=== PATIENT | male | born 1935 | race Caucasian/White ===

== ENCOUNTER → 2016-09-24 | Outpatient (CLI) | payer OTHER ==
[~2016-09-24] MED LIST: ACCUPRIL PO; ACTOS PO; ADVAIR 2501 DISK W/D PO; AGGRENOX; AGGRENOX1 CAP PO; ALBUTEROL 90 MCG; ALBUTEROL MININEB NEB; ALBUTEROL17 GM INH; ALLERGY10 M1 PO; APIDRA100 U/ML; APIDRA100 U/ML SUBQ; ASPIRIN EC81 M1 PO; ASPIRIN PO; ASPIRIN81 M2 PO; ATROVENT 0.03%30 ML; BIMATOPROST 0.03% OU; BREO ELLIPTA 11 EACH INH; CLARITIN10 M2 PO; CLOPIDOGREL BIS75 MG PO; COSOPT EYE DROPS5 ML OP; COSOPT EYE DROPS5 ML OU; COSOPT1 UNI1 OU; DONEPEZIL HCL10 MG PO; FEOSOL PO; FUROSEMIDE40 MG PO; GLUCOVANCE 5/501 TA1 PO; ILEVRO1.7 ML OD; LANTUS100 U/ML SUBQ; LASIX PO; LEVEMIR; LEVEMIR SUBQ; LEVEMIR100 UNITS/ SUBQ; LIPITOR PO; LIPITOR40 MG PO; LISINOPRIL2.5 MG PO; LOPRESSOR PO; LORTAB 7.5-5001 TAB PO; LOSARTAN POTASS50 MG PO; LUMIGAN2.5 ML OU; MELOXICAM7.5 MG PO; METAMUCIL0.52 G PO; METOPROLOL TAR25 MG PO; MILK OF MAGNESIA PO; MONTELUKAST SOD10 MG PO; NAMENDA XR28 MG PO; NASONEX17 GM; NORVASC PO; NOVOLOG100 UNITS/; PLAVIX PO; PREDNISONE10 M1 PO; PSYLLIUM PO; SENNA PO; SINGULAIR PO; SPIRIVA18 MCG INH; SYNTHROID PO; SYNTHROID88 MCG PO; SYSTANE GEL EYE10 ML OU; ULORIC40 MG PO; ZETIA PO; ZITHROMAX PO; ZITHROMAX500 MG PO; [UNRECOGNIZED DRUG - OTHER]
--- NOTE | ~2016-09-24 | US77 ---
[facility] A Service of [facility] & [facility] RADIOLOGY TEXT RESULTS PATIENT: FRAN MÉNDEZ LOCATION: US : 37 UNIT #: [id number] AGE: [address]: Juan J Murphy MD SEX: M ORDER DR: [id number] [facility] [address] [place], [place] [address] [id number] O MR#: [id number] Acc #: [id number] NAME: FRAN MÉNDEZ : 1935 SEX: M STUDY DATE/TIME: 09/24/2016 12:54 UNIT: US ROOM: STUDY DESCRIPTION: US Kidney Bilateral Complete Attending Physician: Asim Murphy M.D. Referring Physician: Asim Murphy M.D. Ordering Physician: Asim Murphy M.D. Primary Care Physician: Wood Alfonso M.D. MEDICAL IMAGING REPORT This report is preliminary unless electronic signature is present EXAM Renal ultrasound INDICATIONS Stage III chronic kidney disease PROCEDURE Almaraz-scale and Doppler imaging of the kidneys and bladder COMPARISON None FINDINGS The right kidney measures 11.6 cm. Left kidney measures 10.5 cm. 2.2 cm cyst upper pole left kidney. No hydronephrosis. Unremarkable bladder. IMPRESSION Cyst in the upper pole left kidney; otherwise negative renal ultrasound. Dictated by... Felice Don M.D. THIS IS AN ELECTRONICALLY VERIFIED REPORT Felice Don M.D. at 09/24/2016 4:52 PM EED/to TD: 09/24/2016 15:11 JOB #: [id number] MEDICAL IMAGING REPORT COPY
[2016-09-24 13:41] LABS: URINE APPEARANCE CLEAR; URINE BILIRUBIN NEG (NEG); URINE BLOOD NEG (NEG); URINE COLOR YELLOW; URINE GLUCOSE 100 MG/DL (NEG); URINE KETONE NEG (NEG); URINE LEUKOCYTE ESTERASE 3+ (NEG); URINE NITRATE NEG (NEG); URINE PH 5.5 (5-8); URINE PROTEIN NEG (NEG); URINE SPECIFIC GRAVITY 1.012 (1.003-1.035); URINE UROBILINOGEN 0.2 MG/DL (NEG)
[2016-09-24 13:45] LABS: URBCS1 AUWI 0-2 /[HPF] (0-2); URINE BACTERIA AUWI NEG (NEGATIVE); URINE SQUAMOUS EPITHELIAL CELL OCC /[HPF]
[2016-09-24 14:03] LABS: ALBUMIN SERUM 3.4 g/dL (3.5-5.0); BILIRUBIN,TOTAL 0.7 mg/dL (0.2-2.0); BUN/CREATININE RATIO 31.66; CALCIUM SERUM 8.2 mg/dL (8.4-10.2); CREATININE SERUM 1.8 mg/dL (0.6-1.4); GLOM FILT RATE Estimated 38.9 mL/min (>60); PHOSPHOROUS 3.4 mg/dL (2.5-4.6); POTASSIUM 4.7 mmol/L (3.5-5.1); PROTEIN TOTAL SERUM 6.5 g/dL (6.0-8.3); URIC ACID 5.8 mg/dL (2.6-7.2)
[2016-09-26 07:36] LABS: COMPLEMENT C3 180 mg/dL (90-180); COMPLEMENT C4 40 mg/dL (16-47)
[2016-09-26 21:07] LABS: ANA SCREEN Negative (Negative); CALCIUM (PTHINTACT) 8.4 mg/dL (8.6-10.3); MYELOPEROXIDASE AB (PNL) <1.0 AI (<1.0); PROTEINASE-3 AB (PNL) <1.0 AI (<1.0)
== END | disposition home or self-care (01) ==
LOC: CGUS 12:24
PROVIDERS: Internal Medicine Nephrology
DX: N17.9 Acute kidney failure, unspecified (principal); N18.3 Chronic kidney disease, stage 3 (moderate); N25.81 Secondary hyperparathyroidism of renal origin; N28.1 Cyst of kidney, acquired
CPT/HCPCS: 36415; 76770; 80053; 81003; 82310; 82550; 83970; 84100; 84550; 86021; 86038; 86039; 86160; 86334

== ENCOUNTER 2016-12-30 18:23 | Observation (INO) | payer OTHER ==
--- NOTE | ~2016-12-30 | CR63 ---
[facility] A Service of [facility] & [facility] RADIOLOGY TEXT RESULTS PATIENT: FRAN MÉNDEZ LOCATION: B 550-01 : 37 UNIT #: [id number] AGE: [address]: Kiki Cooney MD SEX: M ORDER DR: [id number] [facility] [address] [facility]. [place], [place] [address] [id number] I MR#: [id number] Acc #: [id number] NAME: FRAN MÉNDEZ : 1935 SEX: M STUDY DATE/TIME: 01/01/2017 7:34 UNIT: [facility] ROOM: [facility] STUDY DESCRIPTION: CR Chest 2 View Attending Physician: Kiki Cooney M.D. Ordering Physician: Heath Patel M.D. Primary Care Physician: Wood Alfonso M.D. MEDICAL IMAGING REPORT This report is preliminary unless electronic signature is present EXAM PA and lateral chest 2 views 01/01/2017 COMPARISON 12/30/2016. CLINICAL HISTORY Short of air, cough and congestion for 6 days. History of COPD. FINDINGS There has been prior sternotomy and bypass. Chronic elevation of the left hemidiaphragm is redemonstrated along with mildly prominent interstitium. However, there is no consolidation, effusion, pneumothorax or convincing acute interval change since 12/30/2016. Dictated by... Dk Yeh M.D. THIS IS AN ELECTRONICALLY VERIFIED REPORT Dk Yeh M.D. at 01/04/2017 2:20 PM MARCELLE/mary ellen TD: 01/01/2017 11:23 JOB #: [id number] MEDICAL IMAGING REPORT Page 1 of 1 COPY
--- NOTE | ~2016-12-30 | NM69 ---
[facility] A Service of [facility] & [facility] RADIOLOGY TEXT RESULTS PATIENT: FRAN MÉNDEZ LOCATION: [facility] 550-01 : 37 UNIT #: [id number] AGE: [address]: Kiki Cooney MD SEX: M ORDER DR: [id number] [facility] [address] [facility]. [place], [place] [address] [id number] I MR#: [id number] Acc #: [id number] NAME: FRAN MÉNDEZ : 1935 SEX: M STUDY DATE/TIME: 12/31/2016 11:09 UNIT: [facility] ROOM: [facility] STUDY DESCRIPTION: NM Pulm Vent and Perf Attending Physician: Kiki Cooney M.D. Ordering Physician: Maycol Smith M.D. Primary Care Physician: Wood Alfonso M.D. MEDICAL IMAGING REPORT This report is preliminary unless electronic signature is present EXAM Ventilation/perfusion of the lungs. HISTORY Elevated D-dimer. Shortness of air and cough for 3 days. FINDINGS The ventilation study was done with 33.7 mCi technetium 99m DTPA in aerosol and perfusion study was 6 mCi technetium 99m MAA. There is a chest x-ray from yesterday for comparison. A pacemaker is present. There are no mismatched perfusion ventilation defects. No significant perfusion defects are identified. IMPRESSION Study indicates low probability for pulmonary embolus. Dictated by... Travis Snyder M.D. THIS IS AN ELECTRONICALLY VERIFIED REPORT Travis Snyder M.D. at 01/01/2017 3:55 PM Barbara TD: 12/31/2016 12:45 JOB #: [id number] MEDICAL IMAGING REPORT Page 1 of 1 COPY
--- NOTE | ~2016-12-30 | CO ---
Unit #: [id number] #: [id number] Patient: FRAN LOMELI [id number] [address] [address] [id number] I MR#: [id number] NAME: FRAN LOMELI ROOM: 550 Age: 81 Sex: M Admission Date: 12/31/2016 : 1935 Attending Physician: Kiki Cooney M.D. Primary Care Physician: Wood Alfonso M.D. CONSULTATION REPORT HISTORY OF PRESENT ILLNESS Mr. Lomeli is a 80-year-old white male with a history of coronary artery disease, status post CABG; left ventricular dysfunction; COPD; diabetes; hypertension; and chronic kidney disease, who presents with about a 4- to 5-day history of increasing shortness of breath. 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 Saturday, he was more short of breath and was seen in after-hours clinic and apparently wheezing and given a Depo-Medrol shot. He did not improve over the next 3 to 4 days. He has had a cough, productive of greenish sputum. He has had no definite fevers. No chest pain, but increasing shortness of breath. His daughter noted that he was more restless and was eating and drinking, and was brought to the emergency room, where he has been admitted. His chest x-ray showed no acute infiltrates. His creatinine was 1.9 from 1.8 in August. Cardiac enzymes were negative. Troponin 0.06. BNP is 256. Lactic acid was 0.9. Coags are normal. White count was 8500, hematocrit was 32.1, and platelet count was 187. He has been admitted and we were asked to see. PAST MEDICAL HISTORY Significant for; 1. Coronary artery disease, status post CABG. 2. COPD. 3. Insulin-dependent diabetes mellitus. 4. Hypertension. 5. Hyperlipidemia. 6. History of left pleural effusion, which was exudative, statu post VAT. . PAST SURGICAL HISTORY 1. VAT for left pleural effusion. 2. Coronary artery bypass grafting x2. 3. Cataract extraction. 4. Retina surgery. 5. Pacemaker placement. ALLERGIES Shellfish. HOME MEDICATIONS Please see medication reconciliation. SOCIAL HISTORY Reformed smoker. No alcohol. No illicit drugs. . Does not use Unit #: [id number] #: [id number] Patient: FRAN LOMELI home oxygen. FAMILY HISTORY Negative for lung disease. REVIEW OF SYSTEMS CONSTITUTIONAL: No documented fever. HEENT: No rhinorrhea or nasal congestion. PULMONARY: As noted. CARDIAC: No chest pain or palpitations. GI: No nausea or vomiting. Did have some diarrhea. : No hematuria or dysuria. ENDOCRINE: No polyuria or polydipsia. Does have diabetes and has had decreased p.o. intake. NEUROLOGIC: No unilateral weakness or numbness. PHYSICAL EXAMINATION GENERAL: White male, in no distress, lying in bed. VITAL SIGNS: Blood pressure is 148/64, pulse 88, afebrile, respiratory rate 20. HEENT: Normocephalic and atraumatic. Pupils are equal, round, and reactive. Sclerae nonicteric. Nasal passages patent. Posterior pharynx clear. Mucous membranes are somewhat dry. NECK: Supple. Trachea midline. No cervical or supraclavicular lymphadenopathy. LUNGS: Reveal crackles in the bases bilaterally. CARDIAC: Regular rate and rhythm. Could not appreciate murmur, rub, or gallop. ABDOMEN: Nontender. Bowel sounds are present. No hepatosplenomegaly. EXTREMITIES: Without clubbing, cyanosis, or edema. Diminished pulses. SKIN: Warm and dry. Affect calm. NEUROLOGIC: Awake and oriented x3. Cranial nerves grossly intact. Muscle strength symmetric. LABORATORY STUDIES Reviewed as noted. IMPRESSION 1. Chronic obstructive pulmonary disease exacerbation. 2. Acute bronchitis. 3. Coronary artery disease. 4. History of congestive heart failure. 5. Hypertension. 6. Diabetes. 7. Chronic kidney disease. Elevated creatinine in part may be due to some volume depletion. PLAN We will treat with inhaled bronchodilators with cover with antibiotics. We will recheck chest x-ray in the a.m. He does have rales on exam. This could be development of CHF. We will review his x-ray and monitor. Further recommendations pending. Dictated by... Heath Patel M.D. ALISHA/rosette Unit #: [id number] #: [id number] Patient: FRAN LOMELI TD: 01/01/2017 13:38 JOB #: [id number] CC: Dr. Rustam Kulkarni CONSULTATION REPORT Page 1 of 1 X Heath Patel MD CONSULTATION REPORT
--- NOTE | ~2016-12-30 | CR72 ---
[facility] A Service of [facility] & [facility] RADIOLOGY TEXT RESULTS PATIENT: FRAN MÉNDEZ LOCATION: [facility] 550-01 : 37 UNIT #: [id number] AGE: [address]: Kiki Cooney MD SEX: M ORDER DR: [id number] [facility] [address] [facility]. [place], [place] [address] [id number] I MR#: [id number] Acc #: [id number] NAME: FRAN MÉNDEZ : 1935 SEX: M STUDY DATE/TIME: 12/30/2016 20:47 UNIT: [facility] ROOM: [facility] STUDY DESCRIPTION: CR Chest Single View Portable Attending Physician: Maycol Smith M.D. Ordering Physician: Luz Casarez M.D. Primary Care Physician: Wood Alfonso M.D. MEDICAL IMAGING REPORT This report is preliminary unless electronic signature is present EXAM Portable chest HISTORY Shortness of air and cough and congestion for 3 days. FINDINGS The cardiac size and pulmonary vascularity are normal. No infiltrates or effusions. Sternotomy with CABG markers. Mild linear atelectasis or scarring in both lung bases. Left subclavian pacer leads extend into the right atrium and right ventricle. IMPRESSION 1. No acute findings and no evidence of active disease. 2. Mild linear atelectasis or scarring in the left base. 3. Prior CABG. Dictated by... Mukesh Mckinley M.D. THIS IS AN ELECTRONICALLY VERIFIED REPORT Mukesh Mckinley M.D. at 12/31/2016 3:06 PM ORD/nelda TD: 12/31/2016 08:02 JOB #: [id number] MEDICAL IMAGING REPORT Page 1 of 1 COPY
--- NOTE | ~2016-12-30 | HP ---
Unit #: [id number] #: [id number] Patient: FRAN MÉNDEZ [id number] [address] [address] [id number] I MR#: [id number] NAME: FRAN MÉNDEZ ROOM: 550 Age: 81 Sex: M Admission Date: 12/31/2016 : 1935 Attending Physician: Kiki Cooney M.D. Primary Care Physician: Wood Alfonso M.D. HISTORY AND PHYSICAL CHIEF COMPLAINT Shortness of breath. HISTORY OF PRESENT ILLNESS 81-year-old with a history of COPD, admitted because of shortness of breath. According to him and his family, started four days prior to the admission. The patient was seen by a physician. They gave him some Duo-Nebs. No antibiotic prescription given but his breathing got worse to the point where he was short of breath at rest. Also, according to the , he noticed he is more confused than usual. He does have Alzheimer dementia. He did also complain of cough with yellow to green phlegm in the beginning, currently white phlegm. No chest pain, no fever, no chills, no syncope, no passing out, no dizziness. PAST MEDICAL HISTORY 1. History of coronary artery disease, status post CABG. 2. COPD. 3. Diabetes mellitus type 2. 4. Hypertension. 5. Sick sinus syndrome with pacemaker. 6. Chronic kidney disease stage 2. 7. Chronic diastolic heart failure. 8. Hyperlipidemia. 9. History of left pleural effusion, exudative. SOCIAL HISTORY Ex-smoker, quit in . Occasional alcohol, no drugs. FAMILY HISTORY Positive for hypertension. MEDICATIONS 1. Aspirin 81 p.o. daily. 2. Lipitor 40 daily. 3. Lumigan one drop daily. 4. Breo, one inhalation daily. 5. Plavix 75 daily. 6. Donepezil 10 daily. 7. Cosopt, one drop b.i.d. 8. Lasix 40 daily. 9. Nepafenac, one drop b.i.d. 10. Synthroid 88 mcg daily except Saturday take 1.5 tablet. 11. Fabiola 10 mg p.o. daily. 12. Atorvastatin, two sprays b.i.d. Unit #: [id number] #: [id number] Patient: FRAN MÉNDEZ 13. Losartan 50 mg daily. 14. Meloxicam 7.5 b.i.d. 15. Lopressor 25 b.i.d. 16. Nasonex, two sprays daily. 17. Montelukast 10 mg at bedtime. 18. Namenda 28 mg daily. 19. Systane eyedrops daily. 20. Spiriva one inhalation daily. 21. Uloric 40 mg p.o. daily. 22. NovoLog sliding scale. 23. Levemir 62 units subcu b.i.d. 24. Ventolin one puff inhalation daily. 25. Ventolin one puff inhalation four times daily. REVIEW OF SYSTEMS No headache, no visual changes. Has diarrhea since four days. No constipation, no leg swelling, no skin rash. Reviewed twelve point system with him and his family which was negative except as in HPI. PHYSICAL EXAMINATION VITAL SIGNS: Temperature 98.5, pulse 44, respirations 18, blood pressure 114/78. GENERAL: 81-year-old lying on bed, alert, mildly confused. NECK: Supple. HEENT: Pupils equal, react to light and accommodation. Oriented x3, alert. LUNGS: Bilateral wheezing present. Decreased breath sounds. HEART: S1, S2 heard, irregular. Pacemaker present. ABDOMEN: Soft, nontender. Bowel sounds are present. EXTREMITIES: No pedal edema. SKIN: No rash. NEUROLOGICAL: The patient is alert and oriented x3, mildly confused. No focal neurological deficits. DIAGNOSTIC STUDIES LABORATORY DATA: WBC 8.5, hemoglobin 10.4, platelets 187. INR 1.0, BNP 256, creatinine 1.9. Lactic acid 0.9, glucose 180. IMAGING: Chest x-ray shows no acute findings. ASSESSMENT AND PLAN 81-year-old admitted because of shortness of breath and cough. 1. Acute hypoxic respiratory failure: Patient is currently on 3 L. 2. Chronic obstructive pulmonary disease with exacerbation: Patient will be started on Duo-Nebs and possible IV Solu-Medrol after seen by pulmonary. Rule out PE. V/Q scan has been ordered. Results are pending at the time of dictation. 3. Toxic metabolic encephalopathy, likely from hypoxia. Patient does have Alzheimer dementia and confusion in the past also. 4. Acute kidney injury with chronic kidney disease stage 2, likely from poor p.o. intake: Hold Lasix and monitor. 5. Chronic diastolic heart failure, stable. 6. Diabetes mellitus type 2: Continue sliding scale and Levemir. Dictated by Unit #: [id number] #: [id number] Patient: FRAN MÉNDEZ M.D. KJ/df TD: 12/31/2016 12:51 JOB #: [id number] HISTORY AND PHYSICAL Page 1 of 1 X Kiki Cooney MD X HISTORY AND PHYSICAL
--- NOTE | ~2016-12-30 | DS ---
Unit #: [id number] #: [id number] Patient: FRAN MÉNDEZ [id number] [address] [address] [id number] I MR#: [id number] NAME: FRAN MÉNDEZ ROOM: 550 Age: 81 Sex: M Admission Date: 12/31/2016 : 1935 Discharge Date: Attending Physician: Kiki Cooney M.D. Primary Care Physician: Wood Alfonso M.D. DISCHARGE SUMMARY DISCHARGE DIAGNOSES 1. Acute hypoxic respiratory failure. 2. Chronic obstructive pulmonary disease with exacerbation. 3. Toxic metabolic encephalopathy, likely from hypoxia. 4. Acute kidney injury. 5. Chronic kidney disease stage 2. 6. Chronic diastolic heart failure. 7. Diabetes mellitus type 2, uncontrolled. 8. Sick sinus syndrome with pacemaker. 9. Hypertension. 10. Hyperlipidemia. 11. History of left pleural effusion, exudative. 12. History of coronary artery disease, status post coronary artery bypass grafting. CONSULTATION Dr. Patel. PROCEDURE None. DIAGNOSTIC STUDIES LABORATORY: Glucose 323, creatinine 1.7. WBC 13.8, hemoglobin 10, platelets 206,000. ALLERGIES Shellfish. DISCHARGE MEDICATIONS 1. Albuterol one puff inhalation daily. 2. Albuterol nebulizer four times daily p.r.n. shortness of breath. 3. Ipratropium two sprays nasally b.i.d. 4. Nasonex two sprays nasally daily. 5. Spiriva one inhalation daily. 6. Claritin 10 mg daily. 7. Cosopt one drop b.i.d. 8. Metoprolol 25 p.o. b.i.d. 9. Namenda 28 daily. 10. Aricept 10 daily. 11. Breo Ellipta 100/25 inhalation daily. 12. Systane eye drops daily. 13. Lipitor 40 daily. 14. Cozaar 50 daily. 15. Levemir 62 units subcutaneous b.i.d. Unit #: [id number] #: [id number] Patient: FRAN MÉNDEZ 16. NovoLog sliding scale. 17. Lumigan one drop daily. 18. Singulair 10 daily. 19. Aspirin 81 daily. 20. Plavix 75 daily. 21. Synthroid 88 mcg p.o. daily except Saturday take 0.132 mg on Saturday. 22. Uloric 40 daily. 23. Azithromycin 500 mg p.o. daily. 24. Prednisone tapering dose. HOSPITALIZATION COURSE A 81 year old admitted because of shortness of breath. Acute hypoxic respiratory failure from COPD: Currently off oxygen. He does not need home O2. COPD with exacerbation: Started on IV Solu-Medrol and DuoNeb and Zithromax and Rocephin. Currently, breathing better. Patient will be discharged on prednisone tapering dose and Zithromax, albuterol, Spiriva, and Breo. Diabetes mellitus type 2: Uncontrolled secondary to steroids. He takes a lot of insulin which has been slowly resumed. Continue with his insulin and sliding scale at home. Acute kidney injury: Most likely prerenal from medications. Lasix has been discontinued. Currently, creatinine is stable. DISPOSITION Discharge home with home health. FOLLOWUP Follow with family physician in one week time. Dictated by... Laol Duff/dustin TD: 01/03/2017 11:49 JOB #: [id number] DISCHARGE SUMMARY Page 1 of 1 X Kiki Cooney MD X DISCHARGE SUMMARY
--- NOTE | ~2016-12-30 | EKG ---
PATIENT: FRNA MÉNDEZ UNIT #: [id number] Ventricular Rate: 67 BPM Atrial Rate: 67 BPM P-R Interval: 176 ms QRS Duration: 124 ms Q-T Interval: 434 ms QTC Calculation(Bezet): 458 ms P Springs: 42 degrees Calculated R Springs: 33 degrees Calculated T Springs: 112 degrees Diagnosis Line: Normal sinus rhythm Diagnosis Line: Nonspecific ST and T wave abnormality Diagnosis Line: Abnormal ECG Diagnosis Line: No previous ECGs available Diagnosis Line: Confirmed by SARA CAMPOS MD ([id number]) on Diagnosis Line: 12/31/2016 10:41:21 PM INTERPRETING MD: JOB
[~2016-12-30 18:23] MED LIST changes: -ALLERGY10 M1 PO; -ASPIRIN81 M2 PO; -ATROVENT 0.03%30 ML; -CLOPIDOGREL BIS75 MG PO; -COSOPT1 UNI1 OU; -DONEPEZIL HCL10 MG PO; -FUROSEMIDE40 MG PO; -ILEVRO1.7 ML OD; -MELOXICAM7.5 MG PO; -MONTELUKAST SOD10 MG PO; -NAMENDA XR28 MG PO; -NOVOLOG100 UNITS/; -PREDNISONE10 M1 PO; -SYSTANE GEL EYE10 ML OU; -ZITHROMAX500 MG PO
[2016-12-30 21:10] LABS: BASOPHIL% 0.2 % (0-2.5); EOSINOPHIL% 0.4 % (0.0-7.0); HEMATOCRIT 32.1 % (38.0-50.0); HEMOGLOBIN 10.5 gm/dL (13.0-16.0); LYMPHOCYTE# 0.9 X10e3 (1.0-3.5); MEAN CORPUSCULAR HEMOGLOBIN 25.9 PG (28-34); MEAN CORPUSCULAR HGB CONC 32.7 g/dL (30-36); MEAN PLATELET VOLUME 8.5 FL (6.5-11.5); MONOCYTE% 11.4 % (3.0-12.0); NEUTROPHIL# 6.5 X10e3 (1.5-7.1); PLATELET COUNT 187 X10e3 (140-420); RED BLOOD COUNT 4.06 X10e (3.90-5.60); RED CELL DISTRIBUTION WIDTH 15.3 % (11.0-15.5); WHITE BLOOD COUNT 8.5 X10e3 (4.0-10.5)
[2016-12-30 21:11] LABS: DIFF IND NO
[2016-12-30 21:28] LABS: PROTHROMBIN TIME (PATIENT) 10.7 SECONDS (9.6-11.5)
[2016-12-30 21:48] LABS: ALBUMIN SERUM 3.1 g/dL (3.5-5.0); BILIRUBIN, DIRECT 0.1 mg/dL (0.0-0.2); BILIRUBIN,INDIRECT 0.1 mg/dL (0.0-0.9); BILIRUBIN,TOTAL 0.2 mg/dL (0.2-2.0); BUN/CREATININE RATIO 26.84; CALCIUM SERUM 8.1 mg/dL (8.4-10.2); CREATININE SERUM 1.9 mg/dL (0.6-1.4); GLOM FILT RATE Estimated 32.8 mL/min (>60); POTASSIUM 3.6 mmol/L (3.5-5.1)
[2016-12-30 23:21] LABS: %MB 2.4 % (0.0-4.0); MB 2.7 ng/ml
[2016-12-31] MEDS ORDERED: ASPIRIN81 M2 PO (02:38)
[2016-12-31] MEDS ORDERED: LIPITOR40 MG PO (02:38)
[2016-12-31] MEDS ORDERED: LUMIGAN2.5 ML OU (02:44)
[2016-12-31] MEDS ORDERED: BREO ELLIPTA 11 EACH INH (02:44)
[2016-12-31] MEDS ORDERED: CLOPIDOGREL BIS75 MG PO (02:57)
[2016-12-31] MEDS ORDERED: DONEPEZIL HCL10 MG PO (02:58)
[2016-12-31] MEDS ORDERED: COSOPT1 UNI1 OU (06:51)
[2016-12-31] MEDS ORDERED: FUROSEMIDE40 MG PO (06:52)
[2016-12-31] MEDS ORDERED: ILEVRO1.7 ML OD (06:52)
[2016-12-31] MEDS ORDERED: ALLERGY10 M1 PO (07:09)
[2016-12-31] MEDS ORDERED: SYNTHROID88 MCG PO (07:09)
[2016-12-31] MEDS ORDERED: ATROVENT 0.03%30 ML (07:11)
[2016-12-31] MEDS ORDERED: LOSARTAN POTASS50 MG PO (07:12)
[2016-12-31] MEDS ORDERED: MELOXICAM7.5 MG PO (07:15)
[2016-12-31] MEDS ORDERED: LOPRESSOR PO (07:18)
[2016-12-31] MEDS ORDERED: NASONEX17 GM (07:19)
[2016-12-31] MEDS ORDERED: MONTELUKAST SOD10 MG PO (07:20)
[2016-12-31] MEDS ORDERED: SYSTANE GEL EYE10 ML OU (07:21)
[2016-12-31] MEDS ORDERED: NAMENDA XR28 MG PO (07:21)
[2016-12-31] MEDS ORDERED: SPIRIVA18 MCG INH (07:22)
[2016-12-31] MEDS ORDERED: ALBUTEROL17 GM INH ×2 (07:45→07:46)
[2016-12-31] MEDS ORDERED: ULORIC40 MG PO (07:45)
[2016-12-31] MEDS ORDERED: NOVOLOG100 UNITS/ (08:10)
[2016-12-31] MEDS ORDERED: LEVEMIR100 UNITS/ SUBQ (08:11)
[2017-01-01 05:54] LABS: HEMATOCRIT 30.4 % (38.0-50.0); HEMOGLOBIN 9.9 gm/dL (13.0-16.0); MEAN CELL VOLUME 79.7 FL (83-96); MEAN CORPUSCULAR HEMOGLOBIN 25.9 PG (28-34); MEAN CORPUSCULAR HGB CONC 32.6 g/dL (30-36); MEAN PLATELET VOLUME 9.1 FL (6.5-11.5); RED BLOOD COUNT 3.82 X10e (3.90-5.60); RED CELL DISTRIBUTION WIDTH 15.5 % (11.0-15.5); WHITE BLOOD COUNT 6.2 X10e3 (4.0-10.5)
[2017-01-01 06:39] LABS: ALBUMIN SERUM 2.7 g/dL (3.5-5.0); BILIRUBIN,TOTAL 0.9 mg/dL (0.2-2.0); BUN/CREATININE RATIO 31.66; CREATININE SERUM 1.8 mg/dL (0.6-1.4); POTASSIUM 4.1 mmol/L (3.5-5.1); PROTEIN TOTAL SERUM 6.6 g/dL (6.0-8.3)
[2017-01-01 12:34] LABS: URINE APPEARANCE CLEAR; URINE BILIRUBIN NEG (NEG); URINE BLOOD TRACE (NEG); URINE COLOR YELLOW; URINE GLUCOSE >1000 MG/DL (NEG); URINE KETONE NEG (NEG); URINE LEUKOCYTE ESTERASE NEG (NEG); URINE NITRATE NEG (NEG); URINE PROTEIN NEG (NEG); URINE UROBILINOGEN 0.2 MG/DL (NEG)
[2017-01-01 12:38] LABS: URINE BACTERIA AUWI NEG (NEGATIVE); URINE SQUAMOUS EPITHELIAL CELL NONE SEEN /[HPF]; UWBCS1 AUWI 0-2 (0-5)
[2017-01-02 05:36] LABS: HEMATOCRIT 31.6 % (38.0-50.0); HEMOGLOBIN 10.1 gm/dL (13.0-16.0); MEAN CELL VOLUME 79.1 FL (83-96); MEAN CORPUSCULAR HEMOGLOBIN 25.4 PG (28-34); MEAN CORPUSCULAR HGB CONC 32.1 g/dL (30-36); RED BLOOD COUNT 3.99 X10e (3.90-5.60); RED CELL DISTRIBUTION WIDTH 15.2 % (11.0-15.5)
[2017-01-02 05:47] LABS: WHITE BLOOD COUNT 14.4 X10e3 (4.0-10.5)
[2017-01-02 06:08] LABS: BUN/CREATININE RATIO 41.76; CALCIUM SERUM 8.4 mg/dL (8.4-10.2); CREATININE SERUM 1.7 mg/dL (0.6-1.4); GLOM FILT RATE Estimated 37.5 mL/min (>60); POTASSIUM 3.6 mmol/L (3.5-5.1)
[2017-01-03 06:41] LABS: MEAN CELL VOLUME 79.7 FL (83-96); MEAN CORPUSCULAR HEMOGLOBIN 25.6 PG (28-34); MEAN CORPUSCULAR HGB CONC 32.1 g/dL (30-36); MEAN PLATELET VOLUME 9.2 FL (6.5-11.5); RED BLOOD COUNT 3.9 X10e (3.90-5.60); RED CELL DISTRIBUTION WIDTH 15.2 % (11.0-15.5); WHITE BLOOD COUNT 13.8 X10e3 (4.0-10.5)
[2017-01-03 07:05] LABS: BUN/CREATININE RATIO 41.17; CALCIUM SERUM 8.1 mg/dL (8.4-10.2); CREATININE SERUM 1.7 mg/dL (0.6-1.4); GLOM FILT RATE Estimated 37.5 mL/min (>60); POTASSIUM 4.4 mmol/L (3.5-5.1)
[2017-01-03] MEDS ORDERED: ZITHROMAX500 MG PO (14:25)
[2017-01-03] MEDS ORDERED: PREDNISONE10 M1 PO (14:26)
== END 2017-01-03 15:30 | disposition home or self-care (01) ==
LOC: CED 18:23 → CEDOF 12-31 01:15 → CED 12-31 01:16 → CEDOF 12-31 01:16 → C5B 12-31 04:59
PROVIDERS: Emergency Medicine; Internal Medicine
DX: J96.01 Acute respiratory failure with hypoxia (principal); J44.1 Chronic obstructive pulmonary disease with (acute) exacerbation; J44.0 Chronic obstructive pulmonary disease with (acute) lower respiratory infection; J20.9 Acute bronchitis, unspecified; G92 Toxic encephalopathy; N17.9 Acute kidney failure, unspecified; I13.0 Hypertensive heart and chronic kidney disease with heart failure and stage 1 through stage 4 chronic kidney disease, or unspecified chronic kidney disease; E11.22 Type 2 diabetes mellitus with diabetic chronic kidney disease; E11.65 Type 2 diabetes mellitus with hyperglycemia; N18.2 Chronic kidney disease, stage 2 (mild); I50.32 Chronic diastolic (congestive) heart failure; Z79.4 Long term (current) use of insulin; G30.9 Alzheimer's disease, unspecified; F02.80 Dementia in other diseases classified elsewhere, unspecified severity, without behavioral disturbance, psychotic disturbance, mood disturbance, and anxiety; E78.5 Hyperlipidemia, unspecified; I25.10 Atherosclerotic heart disease of native coronary artery without angina pectoris; Z95.1 Presence of aortocoronary bypass graft; Z95.0 Presence of cardiac pacemaker; Z82.49 Family history of ischemic heart disease and other diseases of the circulatory system; Z87.891 Personal history of nicotine dependence; Z79.02 Long term (current) use of antithrombotics/antiplatelets; Z79.82 Long term (current) use of aspirin; Z91.013 Allergy to seafood
CPT/HCPCS: 36415; 71010; 71020; 78582; 80048; 80053; 80076; 81003; 82550; 82553; 82947; 83605; 83880; 84484; 85025; 85027; 85379; 85610; 87040; 93005; 94640; 94664; 94760; 96365; 96366; 96372; 96375; 96376; 97116; 97161; 97166; 97530; 97535; 99284; A9540; A9567; G0378; G8978-GP; G8979-GP; G8980-GP; G8987-GO; G8988-GO; J0456; J0696; J1650; J1815; J2920